=== PATIENT | female | born 1980 | race Caucasian/White ===

== ENCOUNTER 2017-10-19 14:00 | Emergency (ER) | payer MEDICAID ==
[2017-10-19] MEDS: ALBUTEROL 0.083% (NEB) 2.5 MG/3 ML AMP HHN (14:41)
[2017-10-19] MEDS: IPRATROPIUM (NEB) 0.5 MG/2.5 ML AMP HHN (14:41)
== END 2017-10-19 15:33 | disposition home or self-care (01) ==
LOC: FTE 14:00
DX: J40 Bronchitis, not specified as acute or chronic (principal)
CPT/HCPCS: 94664; 99284-25

== ENCOUNTER 2018-04-22 20:15 | Inpatient (IN) | payer MEDICAID ==
[2018-04-22 21:22] LABS: RUPTURE FETAL MEMBRANES POSITIVE (NEGATIVE)
[2018-04-22] MEDS ORDERED: MISOPROSTOL 200 MCG TAB PR (22:30)
[2018-04-22] MEDS ORDERED: IBUPROFEN 600 MG TAB PO (22:30)
[2018-04-22] MEDS ORDERED: METHYLERGONOVINE 0.2 MG INJ IM (22:30)
[2018-04-22] MEDS ORDERED: BUTORPHANOL 2 MG INJ IV (22:30)
[2018-04-22] MEDS ORDERED: OXYTOCIN 30 UNITS/LR 500 ML IV (22:30)
[2018-04-22] MEDS ORDERED: LIDOCAINE 1% (MPF) 30 ML INJ INJ (22:30)
[2018-04-22] MEDS ORDERED: CARBOPROST 250 MCG INJ IM (22:30)
[2018-04-22] MEDS: LACTATED RINGER'S 1,000 ML IV (23:19)
[2018-04-22] MEDS: AMPICILLIN 2 GM/NS (PMX) 100 ML IV (23:27)
[2018-04-23 00:24] LABS: ADD MAN DIFF? NO
[2018-04-23 00:26] LABS: BASOPHILS % 0.2 % (0.0-2.0); EOSINOPHILS # 0.1 10^3/ul (0.0-0.5); HEMATOCRIT 35.4 % (37.0-47.0); HEMOGLOBIN 11.4 g/dl (12.0-16.0); LYMPHOCYTES # 1.7 10^3/ul (0.8-2.9); LYMPHOCYTES % 20.6 % (15.0-51.0); MEAN CORPUSCULAR HGB CONC 32.2 g/dl (32.0-37.0); MEAN CORPUSCULAR VOLUME 90.1 fl (82.0-101.0); MEAN PLATELET VOLUME 10.5 fl (7.4-10.4); MONOCYTE # 0.5 10^3/ul (0.3-0.9); NEUTROPHIL # 5.8 10^3/ul (1.6-7.5); NEUTROPHILS % 71.5 % (39.0-77.0); PLATELET COUNT 175 10^3/UL (140-415); RED BLOOD COUNT 3.93 10^6/ul (4.20-5.40); RED CELL DISTRIBUTION WIDTH 15.4 % (11.5-14.5)
[2018-04-23 00:26] LABS: WHITE BLOOD COUNT 8.2 10^3/ul (4.8-10.8)
[2018-04-23 00:57] LABS: INR 0.99; PARTIAL THROMBOPLASTIN TIME 26.5 Sec (23.0-35.0); PROTIME 13.2 Sec (11.9-14.9)
[2018-04-23 01:22] LABS: HEPATITIS B SURFACE ANTIGEN NEGATIVE (NEGATIVE)
[2018-04-23] MEDS: AMPICILLIN 1 GM/NS (PMX) 50 ML IV ×5 (03:01→19:42)
[2018-04-23] MEDS: LACTATED RINGER'S 1,000 ML IV ×3 (08:38→18:27)
[2018-04-23] MEDS ORDERED: FENTAnyl 2MCG/ML-ROPIV 0.2% 100 ML (13:41)
[2018-04-23] MEDS ORDERED: NALOXONE (0.4 MG/ML) INJ IV (14:00)
[2018-04-23] MEDS ORDERED: DIPHENHYDRAMINE 50 MG INJ IV (14:00)
[2018-04-23] MEDS ORDERED: ONDANSETRON 4 MG INJ IV (14:00)
[2018-04-23 15:24] LABS: RAPID PLASMA REAGIN NONREACTIVE (NR)
[2018-04-23] MEDS: OXYTOCIN 30 UNITS/LR 500 ML IV ×2 (22:09→22:25)
[2018-04-23] MEDS: MINERAL OIL LIGHT 10 ML VIAL TOP (22:10)
[2018-04-23] MEDS: FENTAnyl 2MCG/ML-ROPIV 0.2% 100 ML BAG EPI (22:10)
[2018-04-24] MEDS: AMPICILLIN 1 GM/NS (PMX) 50 ML IV (00:40)
[2018-04-24] MEDS: LACTATED RINGER'S 1,000 ML IV (00:40)
[2018-04-24] MEDS: KETOROLAC 30 MG INJ IV (00:43)
[2018-04-24] MEDS: LACTATED RINGER'S 1,000 ML IV* ×2 (02:17→10:17)
[2018-04-24] MEDS ORDERED: WITCH HAZEL/GLYCERIN PAD PR (02:30)
[2018-04-24] MEDS ORDERED: CARBOPROST 250 MCG INJ IM (02:30)
[2018-04-24] MEDS ORDERED: DIBUCAINE 1% 30 GM OINT TOP (02:30)
[2018-04-24] MEDS ORDERED: MISOPROSTOL 200 MCG TAB PR (02:30)
[2018-04-24] MEDS ORDERED: METHYLERGONOVINE 0.2 MG INJ IM (02:30)
[2018-04-24] MEDS ORDERED: ZOLPIDEM 5 MG TAB PO (02:30)
[2018-04-24] MEDS ORDERED: OXYTOCIN 30 UNITS/LR 500 ML IV (02:30)
[2018-04-24] MEDS ORDERED: HYDROCODONE/APAP (5/325) TAB PO ×2 (02:30)
[2018-04-24] MEDS ORDERED: BENZOCAINE 20% 56 ML SPRAY TOP (02:30)
[2018-04-24] MEDS ORDERED: LANOLIN HPA 1 PKT TOP (02:30)
[2018-04-24] MEDS: CEPHALEXIN 500 MG CAP PO ×4 (05:37→23:43)
[2018-04-24] MEDS: IBUPROFEN 600 MG TAB PO ×4 (05:38→23:44)
[2018-04-24] MEDS: ACCU-CHEK XX ×4 (05:40→20:05)
[2018-04-24 06:13] LABS: ADD MAN DIFF? NO
[2018-04-24 06:29] LABS: BASOPHILS % 0.2 % (0.0-2.0); EOSINOPHILS % 0.1 % (0.0-7.0); HEMATOCRIT 35.1 % (37.0-47.0); HEMOGLOBIN 11.3 g/dl (12.0-16.0); LYMPHOCYTES # 1.4 10^3/ul (0.8-2.9); LYMPHOCYTES % 11.3 % (15.0-51.0); MEAN CORPUSCULAR HEMOGLOBIN 29.7 pg (29.0-33.0); MEAN CORPUSCULAR HGB CONC 32.2 g/dl (32.0-37.0); MEAN CORPUSCULAR VOLUME 92.4 fl (82.0-101.0); MEAN PLATELET VOLUME 10.7 fl (7.4-10.4); MONOCYTE # 0.7 10^3/ul (0.3-0.9); MONOCYTES % 5.4 % (0.0-11.0); NEUTROPHIL # 10.1 10^3/ul (1.6-7.5); NEUTROPHILS % 82.5 % (39.0-77.0); PLATELET COUNT 169 10^3/UL (140-415); RED CELL DISTRIBUTION WIDTH 15.7 % (11.5-14.5)
[2018-04-24 06:29] LABS: WHITE BLOOD COUNT 12.3 10^3/ul (4.8-10.8)
[2018-04-24] MEDS: MAGNESIUM HYDROXIDE 30ML CUP PO ×2 (09:09→20:59)
[2018-04-24] MEDS: SENNA/DOCUSATE NA (8.6MG/50MG) TAB PO ×2 (09:10→21:00)
[2018-04-24] MEDS: metFORMIN (XR) 500 MG TAB PO ×2 (10:00→21:19)
[2018-04-24] MEDS: ALBUTEROL HFA 8 GM INHALER INH (14:50)
[2018-04-25] MEDS: IBUPROFEN 600 MG TAB PO ×2 (05:25→11:49)
[2018-04-25] MEDS: CEPHALEXIN 500 MG CAP PO ×2 (05:25→11:49)
[2018-04-25] MEDS: ACCU-CHEK XX ×3 (08:12→14:38)
[2018-04-25] MEDS: MAGNESIUM HYDROXIDE 30ML CUP PO (09:30)
[2018-04-25] MEDS: SENNA/DOCUSATE NA (8.6MG/50MG) TAB PO (09:30)
[2018-04-25] MEDS: metFORMIN (XR) 500 MG TAB PO (09:30)
[2018-04-25] MEDS: DIPHTH/TET/ACEL PERTUSS (ADULT) 0.5 ML VIAL IM* (09:42)
[2018-04-25] MEDS: MEASLES,MUMPS,RUBELLA VACCINE INJ SC* (09:42)
[2018-04-25] MEDS: VARICELLA VACCINE LIVE/PF 1,350 UNIT/0.5 ML ML SC* (09:43)
== END 2018-04-25 17:52 | disposition home or self-care (01) | DRG 807 ==
LOC: OBT 20:15 → L-D 04-23 08:30 → PP1 04-24 13:54 → L-D 20:16 → OBT 22:09 → L-D 22:09
PROVIDERS: Obstetrics & Gynecology
PROC: 10D07Z6 Extraction of Products of Conception, Vacuum, Via Natural or Artificial Opening (ICD-10-PCS; principal; 2018-04-23)
DX: O24.425 Gestational diabetes mellitus in childbirth, controlled by oral hypoglycemic drugs (principal); Z37.0 Single live birth; O69.81X0 Labor and delivery complicated by cord around neck, without compression, not applicable or unspecified; O76 Abnormality in fetal heart rate and rhythm complicating labor and delivery; Z3A.37 37 weeks gestation of pregnancy
CPT/HCPCS: 62319; 76815; 82962; 84112; 85025; 85610; 85730; 86592; 86850; 86900; 86901; 87340; 99464